=== PATIENT | female | born 1950 | race Caucasian/White ===

== ENCOUNTER → 2017-07-26 15:52 | Outpatient (CLI) | payer MEDICARE, OTHER | END | disposition home or self-care (01) | LOC: D.MAMMO 07-05 11:15 | DX: Z12.31 Encounter for screening mammogram for malignant neoplasm of breast (principal) ==

== ENCOUNTER → 2017-12-20 13:43 | Outpatient (CLI) | payer MEDICARE, OTHER | END | disposition home or self-care (01) | LOC: D.MRI 13:43 | DX: R41.3 Other amnesia (principal) ==

== ENCOUNTER 2019-08-01 19:00 | Outpatient (CLI) | payer MEDICARE, BC | END 2019-08-01 23:59 | disposition home or self-care (01) | LOC: D.MAMMO 19:00 | PROVIDERS: ATTEND Family Medicine | DX: Z12.31 Encounter for screening mammogram for malignant neoplasm of breast (principal) ==

== ENCOUNTER 2020-10-15 17:00 | Outpatient (CLI) | payer MEDICARE, BC ==
[2020-06-17 13:58] VITALS: BMI 24.9
[~2020-10-15 17:00] MED LIST: GEMFIBROZIL600 MG; LEVOXYL25 MCG; METFORMIN HCL500 M1; PRANDIN2 MG; PRAVACHOL40 MG; ULTRAM50 MG PO; VITAMIN D-32000 UNI1; VOLTAREN25 MG PO
== END 2020-10-15 23:59 | disposition home or self-care (01) ==
LOC: D.MAMMO 17:00
PROVIDERS: ATTEND Family Medicine
DX: Z12.31 Encounter for screening mammogram for malignant neoplasm of breast (principal)